=== PATIENT | female | born 1965 | race Caucasian/White ===

== ENCOUNTER 2017-07-21 10:06 | Emergency (ER) | payer OTHER ==
[~2017-07-21] VITALS: Ht 154.9 cm; Wt 62.0 kg
[2017-07-21 10:07] VITALS: BP 144/64; PULSE 64; RESP 16; TEMP 97.8; O2SAT 100
[2017-07-21] MEDS ORDERED: MONT10TA4 PO (10:14)
[2017-07-21] MEDS ORDERED: FLUT1SPR5 EACH NARE (10:14)
--- NOTE | 2017-07-21 10:28 | PD ---
HPI Chief Complaint: General Weakness Time Seen by Provider: 10:17 Travel History International Travel<30 days: No Contact w/Intl Traveler<30days: No Traveled to known affect area: No History of Present Illness HPI 51yo F with no PMH presents to the ED with c/o generalized weakness and feeling cold today. Pt has been in the sun all week on [place]. Denies any fever, cough, nasal congestion, ear pain, throat pain, chest pain, sob, n/v, abdominal pain, focal weakness or numbness. PFSH Past Medical History Medical History: Denies Significant Hx ?: Not LMP: 07/2017 Past Surgical History Section: Yes (X3) Tonsillectomy: Yes Social History Alcohol Use: Yes (OCC) Tobacco Use: Yes Substance Use: No Allergies-Medications (Allergen,Severity, Reaction): Coded Allergies: penicillin G (Verified Allergy, Severe, hives, 07/21/17) Reported Meds & Prescriptions Reported Meds & Active Scripts Active Reported Flonase Nasal [place] (Fluticasone Nasal [place]) 50 Mcg/Act [place] 50 Mcg EACH NARE BID Montelukast (Montelukast Sodium) 10 Mg Tab 10 Mg PO HS Review of Systems Except as stated in HPI: all other systems reviewed are Neg Physical Exam Narrative GENERAL: 51yo F not in distress. SKIN: Focused skin assessment warm/dry. HEAD: Atraumatic. Normocephalic. EYES: Pupils equal and round. No scleral icterus. No injection or drainage. ENT: No nasal bleeding or discharge. Mucous membranes pink and moist. Throat: clear. NECK: Trachea midline. No JVD. CARDIOVASCULAR: Regular rate and rhythm. No murmur appreciated. RESPIRATORY: No accessory muscle use. Clear to auscultation. Breath sounds equal bilaterally. GASTROINTESTINAL: Abdomen soft, non-tender, nondistended. MUSCULOSKELETAL: No obvious deformities. No clubbing. No cyanosis. No edema. NEUROLOGICAL: Awake and alert. No obvious cranial nerve deficits. Motor grossly within normal limits. Normal speech. PSYCHIATRIC: Appropriate mood and affect; insight and judgment normal. Data Data Last Documented VS Vital Signs Date Time Temp Pulse Resp B/P (MAP) Pulse Ox O2 Delivery O2 Flow Rate FiO2 07/21/17 10:16 17 Room Air 07/21/17 10:07 97.8 64 144/64 (90) 100 Orders Orders Complete Blood Count With Diff (10/17/17 10:25) Basic Metabolic Panel (Bmp) (07/21/17 10:25) Magnesium (Mg) (07/21/17 10:25) Urinalysis - C+S If Indicated (07/21/17 10:25) Ed Urine Pregnancytest Poc (07/21/17 10:25) Electrocardiogram (07/21/17 ) Thyroid Stimulating Hormone (07/21/17 10:28) Ed Discharge Order (07/21/17 12:44) Labs Laboratory Tests Test 07/21/17 10:35 White Blood Count 7.2 TH/MM3 Red Blood Count 4.10 MIL/MM3 Hemoglobin 13.2 GM/DL Hematocrit 39.3 % Mean Corpuscular Volume 95.8 FL Mean Corpuscular Hemoglobin 32.2 PG Mean Corpuscular Hemoglobin Concent 33.6 % Red Cell Distribution Width 14.0 % Platelet Count 156 TH/MM3 Mean Platelet Volume 9.6 FL Neutrophils (%) (Auto) 74.7 % Lymphocytes (%) (Auto) 16.5 % Monocytes (%) (Auto) 7.1 % Eosinophils (%) (Auto) 1.0 % Basophils (%) (Auto) 0.7 % Neutrophils # (Auto) 5.4 TH/MM3 Lymphocytes # (Auto) 1.2 TH/MM3 Monocytes # (Auto) 0.5 TH/MM3 Eosinophils # (Auto) 0.1 TH/MM3 Basophils # (Auto) 0.0 TH/MM3 CBC Comment DIFF FINAL Differential Comment Urine Color LIGHT-YELLOW Urine Turbidity CLEAR Urine pH 7.0 Urine Specific [place] 1.003 Urine Protein NEG mg/dL Urine Glucose (UA) NEG mg/dL Urine Ketones NEG mg/dL Urine Occult Blood NEG Urine Nitrite NEG Urine Bilirubin NEG Urine Urobilinogen LESS THAN 2.0 MG/DL Urine Leukocyte Esterase NEG Urine RBC LESS THAN 1 /hpf Urine WBC LESS THAN 1 /hpf Urine Squamous Epithelial Cells <1 /hpf Urine Bacteria RARE /hpf Microscopic Urinalysis Comment CULT NOT INDICATED Blood Urea Nitrogen 10 MG/DL Creatinine 0.73 MG/DL Random Glucose 114 MG/DL Calcium Level 8.0 MG/DL Magnesium Level 2.0 MG/DL Sodium Level 136 MEQ/L Potassium Level 3.8 MEQ/L Chloride Level 104 MEQ/L Carbon Dioxide Level 26.2 MEQ/L Anion Gap 6 MEQ/L Estimat Glomerular Filtration Rate 84 ML/MIN Thyroid Stimulating Hormone 3rd Gen 0.724 uIU/ML MDM Medical Decision Making Medical Screen Exam Complete: Yes Emergency Medical Condition: Yes Interpretation(s) EKG: NSR 61bpm. Normal axis. TWI V2. QTc 384ms. Differential Diagnosis Dehydration vs. electrolyte abnormality vs. UTI vs. arrhythmia Narrative Course 51yo F with generalized weakness. Pt has been in the sun daily for a few days since she is on vacation. Denies any chest pain or sob. Labs reviewed, no leukocytosis. H/H normal. TSH normal. Magnesium normal. Glucose 114. BUN/ creatinine normal. UA negative. Urine negative. Pt reevaluated at bedside and said she feels better. Think she may be dehydrated. Return precautions given. Diagnosis Primary Impression: Generalized weakness Patient Instructions: General Instructions Departure Forms: Tests/Procedures Additional Instructions: Please follow up with your primary care physician in 3-7 days. Return to the ED if symptoms worsen. Med/Other Pt SpecificInfo: No Change to Meds Disposition: 01 DISCHARGE HOME Condition: Stable Preeti Sampson DO Jul 21, 2017 10:28
[2017-07-21 10:58] LABS: AUTOMATED NEUTROPHIL # 5.4 TH/MM3 (1.8-7.7); BASOPHIL % 0.7 % (0.0-2.0); EOSINOPHIL # 0.1 TH/MM3 (0-0.4); HEMATOCRIT 39.3 % (35.0-46.0); HEMO FLAGS DIFF FINAL; LYMPH % 16.5 % (9.0-44.0); LYMPHOCYTE # 1.2 TH/MM3 (1.0-4.8); MEAN CELL VOLUME 95.8 FL (80.0-100.0); MEAN CORPUSCULAR HEMOGLOBIN 32.2 PG (27.0-34.0); MEAN CORPUSCULAR HGB CONC 33.6 % (32.0-36.0); MONO % 7.1 % (0.0-8.0); NEUT % 74.7 % (16.0-70.0); PLATELET COUNT 156 TH/MM3 (150-450); WHITE BLOOD COUNT 7.2 TH/MM3 (4.0-11.0)
[2017-07-21 11:01] LABS: BACTERIA, URINE RARE /hpf; BLOOD, URINE NEG (NEG); COMMENT (UR) CULT NOT INDICATED; CULTURE IF INDICATED CULT NOT INDICATED; GLUCOSE,URINE NEG (NEG); KETONE, URINE NEG (NEG); NITRITE,URINE NEG (NEG); SQUAMOUS EPITHELIAL CELL URINE <1 /hpf (0-5); URINE COLOR LIGHT-YELLOW (YELLW/STRAW)
[2017-07-21 11:13] LABS: BICARBONATE 26.2 MEQ/L (21.0-32.0); POTASSIUM 3.8 MEQ/L (3.5-5.1)
[2017-07-21 12:56] VITALS: BP_SYST 111; BP_SYST 120; BP_SYST 122; BP_DIAS 58; BP_DIAS 61; BP_DIAS 68; RESP 16; RESP 18
[2017-07-21 13:08] VITALS: BP 120/68
--- NOTE | 2017-07-22 14:27 | EKG ---
Date Performed: 07/21/2017 Time Performed: 10:31:34 PTAGE: 51 years EKG: Sinus rhythm LOW QRS VOLTAGE IN PRECORDIAL LEADS BORDERLINE ECG WARNING: DATA QUALITY MAY AFFECT INTERPRETATION NO PREVIOUS TRACING DOCTOR: Jerson Gould Interpretating Date/Time 07/22/2017 14:20:27
== END 2017-07-21 13:09 | disposition home or self-care (01) ==
LOC: NEPD 10:06
DX: R53.1 Weakness (principal); Z72.0 Tobacco use
CPT/HCPCS: 80048; 81001; 83735; 84443; 84703; 85025; 93005